=== PATIENT | female | born 1985 ===

== ENCOUNTER 2025-01-02 03:47 | Outpatient (CLI) | payer SELFPAY ==
[2025-01-02 17:28] LABS: HBs Antibody, Quant >1000.0 mIU/mL (See Note); Hepatitis B Surface Ab Positive (See Note)
[2025-01-03 10:12] LABS: Rubella IgG Ab (UVM) Positive (See Note)
[2025-01-04 11:28] LABS: TB Interpretation Negative (Negative); TB1 Ag minus Nil 0.01 IU/mL; TB2 Ag minus Nil 0.01 IU/mL
== END 2025-01-02 03:48 | disposition home or self-care (01) ==
LOC: LBO 03:47
PROVIDERS: Visit Provider Student in an Organized Health Care Education/Training Program
DX: Z02.1 Encounter for pre-employment examination (principal)
CPT/HCPCS: 36415; 86706; 86787; 87340; 86480; 86735; 86762; 86765